=== PATIENT | male | born 1965 | race Caucasian/White ===

== ENCOUNTER 2016-12-25 16:29 | Emergency (ER) | payer OTHER ==
[~2016-12-25] VITALS: Ht 172.7 cm; Wt 69.0 kg
[2016-12-25 16:33] VITALS: Ht 172.7 cm; Wt 69.0 kg
[2016-12-25 17:26] LABS: ADD SCAN DIFF NO
[2016-12-25 17:30] LABS: BASOPHILS % 0.4 % (0.0-2.0); EOSINOPHILS # 0.1 10^3/ul (0.0-0.5); EOSINOPHILS % 1.1 % (0.0-7.0); HEMATOCRIT 41.5 % (42.0-52.0); HEMOGLOBIN 14.6 g/dl (14.0-18.0); LYMPHOCYTES # 1.3 10^3/ul (0.8-2.9); LYMPHOCYTES % 16.9 % (15.0-51.0); MEAN CORPUSCULAR HEMOGLOBIN 30.7 pg (29.0-33.0); MEAN CORPUSCULAR HGB CONC 35.2 g/dl (32.0-37.0); MEAN CORPUSCULAR VOLUME 87.2 fl (82.0-101.0); MEAN PLATELET VOLUME 11.6 fl (7.4-10.4); MONOCYTE # 0.7 10^3/ul (0.3-0.9); MONOCYTES % 9.7 % (0.0-11.0); NEUTROPHIL # 5.3 10^3/ul (1.6-7.5); NEUTROPHILS % 71.5 % (39.0-77.0); PLATELET COUNT 181 10^3/UL (140-415); RED BLOOD COUNT 4.76 10^6/ul (4.70-6.10); RED CELL DISTRIBUTION WIDTH 16.1 % (11.5-14.5); WHITE BLOOD COUNT 7.4 10^3/ul (4.8-10.8)
[2016-12-25 17:35] LABS: ADD UMIC YES; UR ASCORBIC ACID NEGATIVE (NEGATIVE); UR BACTERIA FEW /HPF (NONE SEEN); UR BILIRUBIN (Dip) NEGATIVE (NEGATIVE); UR BLOOD (Dip) NEGATIVE (NEGATIVE); UR CLARITY CLOUDY (CLEAR); UR COLOR YELLOW (YELLOW); UR GLUCOSE (Dip) NEGATIVE (NEGATIVE); UR KETONES (Dip) NEGATIVE (NEGATIVE); UR LEUKOCYTE ESTERASE (Dip) NEGATIVE Leu/ul (NEGATIVE); UR MUCUS MODERATE /HPF (NONE SEEN); UR NITRITE (Dip) NEGATIVE (NEGATIVE); UR RBC 5 /HPF (0-5); UR TOTAL PROTEIN (Dip) 1+ mg/dl (NEGATIVE); UR UROBILINOGEN (Dip) NEGATIVE (NEGATIVE)
[2016-12-25 17:47] LABS: INR 0.95; PROTIME 12.7 Sec (12.2-14.2)
[2016-12-25 17:48] LABS: PARTIAL THROMBOPLASTIN TIME 26.5 Sec (25.0-35.0)
[2016-12-25 17:57] LABS: ALANINE AMINOTRANSFERASE 36 IU/L (13-69); ALBUMIN/GLOBULIN RATIO 2.17; ALKALINE PHOSPHATASE 88 IU/L (42-121); ANION GAP 23 (8-16); ASPARTATE AMINO TRANSFERASE 29 IU/L (15-46); BILIRUBIN,INDIRECT 0.5 mg/dl (0-1.1); BILIRUBIN,TOTAL 0.5 mg/dl (0.2-1.3); BLOOD UREA NITROGEN 14 mg/dl (7-20); CALCIUM 9.2 mg/dl (8.4-10.2); CARBON DIOXIDE 21 mmol/L (21-31); CHLORIDE 102 mmol/L (97-110); GLUCOSE 102 mg/dl (70-220); POTASSIUM 3.3 mmol/L (3.5-5.1); SODIUM 143 mmol/L (135-144); TOTAL PROTEIN 7.3 g/dl (6.1-8.1)
[2016-12-25 18:03] LABS: CANNABINOIDS Positive (NEGATIVE); OPIATES Positive (NEGATIVE)
[2016-12-25 18:22] LABS: BARBITURATES Negative (NEGATIVE); BENZODIAZEPINES Positive (NEGATIVE); COCAINE Negative (NEGATIVE)
[2016-12-25 18:50] LABS: ACETAMINOPHEN < 10.0 ug/ml (10.0-30.0); SALICYLATE < 1.0 mg/dl (5.0-30.0)
--- NOTE | 2016-12-25 18:55 | ERA ---
ER Documentation Chief Complaint Date/Time DATE: 12/25/16 TIME: 18:42 Chief Complaint SI x 2 days has plan and 8/10 L.side rib pain HPI This is a 51-year-old male that has a history of previous suicidal thoughts. The patient indicates that he presents to the emergency department today as he has been feeling very stressed due to various things going on in his life, which he states he does not want to elaborate on. The patient indicates he has a plan where he wants to kill himself by jumping in front of traffic he also admits to illicit drug use with amphetamines. He denies alcohol use. He denies any shortness of breath at rest or exertion and denies any chest pain or pressure that radiates to the neck arm back or jaw. Contrary to the triage note the patient denies any left-sided rib pain and denies any recent remote blunt or penetrating head chest or abdominal trauma. ROS All systems reviewed and are negative except as per history of present illness. Allergies Allergies: Coded Allergies: phenytoin (Verified Allergy, Intermediate, 12/25/16) Uncoded Allergies: PENICILLIN (Allergy, Unknown, 12/25/16) PMhx/Soc Hx Alcohol Use: Yes Smoking Status: Current every day smoker Physical Exam Vitals Vital Signs Date Time Temp Pulse Resp B/P Pulse Ox O2 Delivery O2 Flow Rate FiO2 12/25/16 16:33 98.3 112 18 155/104 96 Physical Exam Constitutional:Well-developed. Well-nourished. HEENT:Normocephalic. Atraumatic.Pupils were equal round reactive to light. Moist mucous membranes.No tonsillar exudates. Neck: No nuchal rigidity. No lymphadenopathy. No posterior cervical spine tenderness or step-offs. Respiratory: Not using accessory muscles of respiration.Lungs were clear to auscultation bilaterally. No rhonchi. No rales. No wheezing. Cardiovascular: Regular rate regular rhythm.No murmurs. No rubs were appreciated.S1, S2 normal. Distal pulses are palpable 2+ bilaterally. No crepitus no ecchymosis no flail chest. No reproducible tenderness over the left or right lateral rib cage. GI: Abdomen was soft. Nontender. Non Distended. No pulsatile abdominal masses or bruits. No rebound. No guarding. Bowel sounds were present and normal. Muscle skeletal: Full range of motion of both the upper and lower extremities bilaterally.Normal muscle tone.No assymetrical calf tenderness or swelling. Skin: No petechia, no purpura. No lesions on the palms or the soles of the feet. No maculopapular rash. NEURO: Patient was alert, awake, orientated x3.No facial droop. Gait observed and normal with no ataxia.Speech had regular rate and rhythm. No focal neurological deficits. Patient had suicidal thoughts ideations with no auditory tactile or visual hallucinations. Result Diagram: 12/25/16 1715 Results 24 hrs Laboratory Tests Test 12/25/16 17:15 White Blood Count 7.410^3/ul Red Blood Count 4.7610^6/ul Hemoglobin 14.6g/dl Hematocrit 41.5% Mean Corpuscular Volume 87.2fl Mean Corpuscular Hemoglobin 30.7pg Mean Corpuscular Hemoglobin Concent 35.2g/dl Red Cell Distribution Width 16.1% Platelet Count 62453^3/UL Mean Platelet Volume 11.6fl Neutrophils % 71.5% Lymphocytes % 16.9% Monocytes % 9.7% Eosinophils % 1.1% Basophils % 0.4% Nucleated Red Blood Cells % 0.0/100WBC Neutrophils # 5.310^3/ul Lymphocytes # 1.310^3/ul Monocytes # 0.710^3/ul Eosinophils # 0.110^3/ul Basophils # 0.010^3/ul Nucleated Red Blood Cells # 0.010^3/ul Prothrombin Time 12.7Sec Prothrombin Time Ratio 1.0 INR International Normalized Ratio 0.95 Activated Partial Thromboplast Time 26.5Sec Urine Color YELLOW Urine Clarity CLOUDY Urine pH 6.0 Urine Specific [place] 1.020 Urine Ketones NEGATIVEmg/dL Urine Nitrite NEGATIVEmg/dL Urine Bilirubin NEGATIVEmg/dL Urine Urobilinogen NEGATIVEmg/dL Urine Leukocyte Esterase NEGATIVELeu/ul Urine Microscopic RBC 5/HPF Urine Microscopic WBC 2/HPF Urine Bacteria FEW/HPF Urine Mucus MODERATE/HPF Urine Hemoglobin NEGATIVEmg/dL Urine Glucose NEGATIVEmg/dL Urine Total Protein 1+mg/dl Digoxin Level < 0.4ng/ml Urine Opiates Screen Positive Urine Barbiturates Negative Urine Amphetamines Screen POSITIVE Urine Benzodiazepines Screen Positive Urine Cocaine Screen Negative Urine Cannabinoids Positive Procedures/MDM The patient presented to the emergency department with an active suicidal ideation. My differential diagnosis included but was not limited to major depressive disorder, normal despondency, bipolar disorder, schizophrenia, anxiety disorder, borderline personality disorder, antisocial personality disorder, organic mental disorder, bereavement or alcohol or drug abuse. Ancillary lab work was obtained including blood alcohol level, drug screen and serum toxicology panel. The patient's amphetamine level was positive. The patient was provided a safe environment while in the emergency department with appropriate supervision. The patient will be seen and evaluated by the tele- psychiatrist as the patient was medically cleared by myself at this time. I obtained a chest radiograph which showed no evidence of a pneumothorax or rib fracture. Departure Diagnosis: Primary Impression: Suicidal ideation Condition: Serious JAMEY KOROMA Dec 25, 2016 18:52
--- NOTE | 2016-12-25 20:28 | RADRPT ---
PROCEDURE: XR Chest. CLINICAL INDICATION: Chest pain TECHNIQUE: AP Portable chest. COMPARISON: No pertinent prior examinations were submitted for comparison. FINDINGS: The cardiomediastinal silhouette is normal. The lungs are clear. The osseous structures are unrema rkable. IMPRESSION: No acute findings. RPTAT: HIKT .Uziel Mcdowell MD, MD Date Time Electronically viewed and signed by .Uziel Mcdowell MD, MD on 12/25/2016 20:28 .T/
[2016-12-25] MEDS ORDERED: IBUPROFEN 600 MG TAB PO ONE (21:00)
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
[2016-12-25] MEDS ORDERED: HYDROCODONE/APAP (5/325) TAB PO ONE (23:30)
[2016-12-26 02:38] VITALS: BP 154/95; PULSE 94; RESP 20; TEMP 98
== END 2016-12-26 02:41 ==
LOC: E/R 16:29
DX: R45.851 Suicidal ideations (principal); R07.9 Chest pain, unspecified; F17.210 Nicotine dependence, cigarettes, uncomplicated
CPT/HCPCS: 71010; 80053; 80162; 80306; 80307; 81001; 85025; 85610; 85730; Z7502; Z7610